=== PATIENT | female | born 1975 | race Caucasian/White ===

== ENCOUNTER 2023-10-30 15:02 | Emergency (ER) | payer MEDICARE, MEDICAID ==
[2023-10-30] MEDS ORDERED: Ketorolac Tromethamine 30 MG (1 mL) VIAL ONE (16:24)
[2023-10-30] MEDS ORDERED: Diazepam 5 MG TAB ONE (16:24)
[2023-10-30] MEDS ORDERED: traMADol HCl 50 MG TAB ONE (18:08)
== END 2023-10-30 18:21 | disposition home or self-care (01) ==
LOC: CSHERS 15:02
DX: S40.021A Contusion of right upper arm, initial encounter (principal); S40.022A Contusion of left upper arm, initial encounter; S30.1XXA Contusion of abdominal wall, initial encounter; V89.2XXA Person injured in unspecified motor-vehicle accident, traffic, initial encounter
CPT/HCPCS: 96372; 99283; J1885